=== PATIENT | male | born 1985 | race Two or more races ===

== ENCOUNTER 2017-10-16 13:13 | Inpatient (IN) | payer MEDICARE ==
[2017-10-16 15:34] VITALS: BMI 23.6
[2017-10-16] MEDS ORDERED: LOPERAMIDE HCL 2 MG CAPSULE PO PRN (17:25)
[2017-10-16] MEDS ORDERED: guaiFENesin/D-METHORPHAN HB 10 ML UNIT-DOSE CUPS PO PRN (17:25)
[2017-10-16] MEDS ORDERED: MAG HYDROX/AL HYDROX/SIMETH 30 ML UNIT-DOSE CUP PO PRN (17:25)
[2017-10-16] MEDS ORDERED: ACETAMINOPHEN 325 MG TABLET (FP) PO PRN (17:25)
[2017-10-16] MEDS ORDERED: MENTHOL/PHENOL 1 EACH UD MM PRN (17:25)
[2017-10-16] MEDS ORDERED: MAGNESIUM HYDROX 2400MG/30ML ORAL SUSPENSION 30 ML CUP PO PRN (17:25)
[2017-10-16] MEDS ORDERED: IBUPROFEN 400 MG TABLET (FP) PO PRN (17:25)
[2017-10-16] MEDS ORDERED: MAGNESIUM CITRATE 300 ML BOTTLE PO PRN (17:25)
[2017-10-16] MEDS ORDERED: P-EPHED 60MG/TRIPROLIDI 2.5MG TABLET PO PRN (17:25)
--- NOTE | 2017-10-16 17:32 | HP ---
COWS - Scale Resting Pulse: 0= [place] 80 or Below Sweatin= Chills/Flushing Restless Observation: 1= Difficult to Sit Still Pupil Size: 1= Pupils >than Normal Bone or Joint Aches: 1= Mild Discomfort Runny Nose/ Eye Tearin= Nasal Congestion GI Upset > 30mins: 2= Nausea/Diarrhea Tremor Observation: 2= Slight Tremor Visible Yawning Observation: 2= >3x During Session Anxiety or Irritability: 1=Feels Anxious/Irritable Goose Flesh Skin: 3=Piloerection COWS Score: 15 CIWA Score - CIWA Score Nausea/Vomitin Muscle Tremors: 3 Anxiety: 3 Agitation: 3 Paroxysmal Sweats: 3 Orientation: 0-Oriented Tacttile Disturbances: 0-None Auditory Disturbances: 0-None Visual Disturbances: 0-None Headache: 0-None Present CIWA-Ar Total Score: 15 Admission [facility] - HPI Chief Complaint: xanax and heroin withdrawal sx Allergies/Adverse Reactions: Allergies Allergy/AdvReac Type Severity Reaction Status Date / Time No Known Allergies Allergy Verified 10/16/17 16:50 History of Present Illness: 32 yo m with h/o opioid and xanax use diorder, smokes 1PPD fist admission for detox because of withdrawal sx when he does not use, h/o withdrawal seizure 6 months, 7 months sober through [facility], relpased last yearreports anxiety, depression and insomnai, thirsty - Ebola screening Have you been sick,other than usual withdrawal symptoms: No - Review of Systems Constitutional: Chills, Diaphoresis, Changes in sleep, Unintentional Wgt. Loss EENT: reports: Tearing, Nose Congestion Respiratory: reports: No Symptoms reported Cardiac: reports: No Symptoms Reported GI: reports: Diarrhea, Nausea, Poor Appetite, Poor Fluid Intake, Vomiting, Indigestion, Abdominal cramping : reports: No Symptoms Reported Musculoskeletal: reports: Back Pain, Joint Pain, Muscle Pain, Neck Pain Integumentary: reports: Flushing, Sweating Neuro: reports: Tremors, Weakness Endocrine: reports: Increased Thirst Hematology: reports: No Symptoms Reported Psychiatric: reports: Judgement Intact, Orientated x3, Anxious, Depressed Other Systems: Reviewed and Negative Patient History - Patient Medical History Hx Anemia: No Hx Asthma: No Hx Chronic Obstructive Pulmonary Disease (COPD): No Hx Cancer: No Hx Cardiac Disorders: No Hx Congestive Heart Failure: No Hx Hypertension: No Hx Hypercholesterolemia: No Hx Pacemaker: No HX Cerebrovascular Accident: No Hx Seizures: Yes (drug related-last episode was 6 mos. ago) Hx Dementia: No Hx Diabetes: No Hx Gastrointestinal Disorders: No Hx Genitourinary Disorders: No Hx Sexually Transmitted Disorders: No Hx Renal Disease (ESRD): No Hx Depression: Yes Hx Suicide Attempt: No Hx Schizophrenia: No - Patient Surgical History Past Surgical History: Yes Hx Neurologic Surgery: No Hx Cataract Extraction: No Hx Cardiac Surgery: No Hx Lung Surgery: No Hx Breast Surgery: No Hx Breast Biopsy: No Hx Abdominal Surgery: No Hx Appendectomy: No Hx Cholecystectomy: No Hx Genitourinary Surgery: No Hx Section: Yes (fx, nose at age 22) Hx Orthopedic Surgery: No Anesthesia Reaction: No - PPD History Previous Implant?: Yes Documented Results: Negative w/o proof Implanted On Prior [facility] Admission?: No PPD to be Administered?: Yes - Reproductive History Patient is a Female of Child Bearing Age (11 -55 yrs old): No Patient : No - Smoking Cessation Smoking history: Current every day smoker Have you smoked in the past 12 months: Yes Aproximately how many cigarettes per day: 20 Hx Chewing Tobacco Use: No Initiated information on smoking cessation: Yes 'Breaking Loose' booklet given: 10/16/17 - Substance & Tx. History Hx Alcohol Use: No Hx Substance Use: Yes Substance Use Type: Opiates, Prescribed, Tranquilizers Hx Substance Use Treatment: Yes (1st admission to [facility] in past) - Substances Abused Heroin Route: Injection Frequency: Daily Amount used: 6-10 bags Age of first use: 22 Date of Last Use: 10/15/17 Xanax Route: Oral Frequency: Daily Amount used: 4-6 mg. Age of first use: 30 Date of Last Use: 10/15/17 Family Disease History - Family Disease History Family History: Denies Admission Physical Exam BHS - Vital Signs Vital Signs: Vital Signs - 24 hr 10/16/17 15:31 Temperature 97.6 F Pulse Rate 77 Respiratory 18 Rate Blood Pressure 100/69 - Physical General Appearance: Yes: Nourished, Appropriately Dressed, Disheveled, Mild Distress, Thin, Tremorous, Irritable, Sweating, Anxious HEENTM: Yes: Within Normal Limits, EOMI, Hearing grossly Normal, Normal ENT Inspection, Normocephalic, Normal Voice, [place], Pharynx Normal Respiratory: Yes: Within Normal Limits, Chest Non-Tender, Lungs Clear, Normal Breath Sounds, No Respiratory Distress, No Accessory Muscle Use Neck: Yes: Within Normal Limits, No masses,lesions,Nodules, Supple, Trachea in good position Breast: Yes: Breast Exam Deferred Cardiology: Yes: Within Normal Limits, Regular Rhythm, Regular Rate, S1, S2 Abdominal: Yes: Normal Bowel Sounds, Non Tender, Flat, Soft Genitourinary: Yes: Within Normal Limits Back: Yes: Within Normal Limits, Normal Inspection Musculoskeletal: Yes: full range of Motion, Pelvis Stable, Back pain, Muscle Pain Extremities: Yes: Normal Capillary Refill, Normal Range of Motion, Non-Tender, Tremors Neurological: Yes: patient relations coordinator II-XII NML intact, Fully Oriented, Alert, Motor Strength 5/5, Normal Response, Depressed Affect Integumentary: Yes: Normal Color, Warm, Diaphoresis, Moist, Track Delaney (new tracks left arm only, no erythema or abscess noted.), Other (poor skin turgor) Lymphatic: Yes: Within Normal Limits - Addiitonal Findings: withdrawal sx present - Diagnostic (1) Opioid dependence with withdrawal Current Visit: Yes Status: Acute (2) Sedative, hypnotic or anxiolytic dependence with withdrawal, uncomplicated Current Visit: Yes Status: Acute (3) Nicotine dependence Current Visit: Yes Status: Acute (4) Depression Current Visit: Yes Status: Acute (5) Dehydration Current Visit: Yes Status: Acute (6) Withdrawal seizures Current Visit: Yes Status: Acute Cleared for Admission [facility] - Detox or Rehab [facility] Level of Care: Medically Managed Detox Regimen/Protocol: Methadone/Valium [facility] Breath Alcohol Content Breath Alcohol Content: 0 Urine Drug Screen - Results Drug Screen Negative: No Urine Drug Screen Results: GABRIELLE-Cocaine, OPI-Opiates, BZO-Benzodiazepines
[2017-10-16] MEDS ORDERED: diazePAM 5 MG TABLET PO ONE (18:00)
[2017-10-16] MEDS ORDERED: METHADONE HCL 10 MG TABLET (FOR DETOX USE ONLY) PO ONE ×2 (18:00→23:00)
[2017-10-16] MEDS ORDERED: METHADONE HCL 10 MG TABLET (FOR DETOX USE ONLY) ONE (20:18)
[2017-10-16] MEDS: NICOTINE 21 MG/24 HOURS TOPICAL PATCH TD SCH (20:28)
[2017-10-16] MEDS: diazePAM 5 MG TABLET PO SCH (22:24)
[2017-10-16] MEDS: THIAMINE HCL 100 MG TABLET (FP) PO SCH (22:24)
[2017-10-16] MEDS: ZOLPIDEM TARTRATE 10 MG TABLET (PARK CARE ONLY) PO PRN (22:25)
[2017-10-16 23:12] LABS: URINE APPEARANCE CLEAR; URINE BILIRUBIN NEGATIVE (NEGATIVE); URINE BLOOD NEGATIVE (NEGATIVE); URINE COLOR LT. YELLOW; URINE GLUCOSE (UA) NEGATIVE (NEGATIVE); URINE KETONE NEGATIVE (NEGATIVE); URINE LEUK ESTERASE NEGATIVE (NEGATIVE); URINE NITRITE NEGATIVE (NEGATIVE); URINE PROTEIN NEGATIVE (NEGATIVE); URINE UROBILINOGEN 0.2 mg/dL (0.2-1.0)
[2017-10-17] MEDS: diazePAM 5 MG TABLET PO PRN ×3 (00:34→15:01)
[2017-10-17] MEDS: diazePAM 5 MG TABLET PO SCH ×3 (05:28→22:08)
--- NOTE | 2017-10-17 08:52 | CONSULT ---
[facility] Psychiatric Consult - Data Date of interview: 10/17/17 Admission source: [facility] Identifying data: This is 32 years old male [facility] [id number] hospitalization history intoxicated with: Opioids, Careack, Xanax, Nicotine Substance Abuse History: - Smoking Cessation. Smoking history: Current every day smoker. Have you smoked in the past 12 months: Yes. Aproximately how many cigarettes per day: 20. Hx Chewing Tobacco Use: No. Initiated information on smoking cessation: Yes. 'Breaking Loose' booklet given: 10/16/17. - Substance & Tx. History. Hx Alcohol Use: No. Hx Substance Use: Yes. Substance Use Type : Opiates, Prescribed, Tranquilizers. Hx Substance Use Treatment: Yes (1[facility] admission [facility] in past). - Substances Abused. Heroin. Route: Injection. Frequency: Daily. Amount used: 6-10 bags. Age of first use: 22. Date of Last Use: 10/15/17. Xanax. Route: Oral. Frequency: Daily. Amount used: 4-6 mg. Age of first use: 30. Date of Last Use: 10/15/17 Medical History: Denies Psychiatric History: Gibran reports history of anxiety and depression, reports psychiatric hospitalization on 2015 at [facility] for safety. Reports anxiety and asking for medications for anxiety Physical/Sexual Abuse/Trauma History: Denies Additional Comment: Vistaril 50mg po q4 prn for anxiety Mental Status Exam - Mental Status Exam Alert and Oriented to: Person Cognitive Function: Fair Patient Appearance: Unkempt Mood: Anxious Affect: Mood Congruent Patient Behavior: Cooperative Speech Pattern: Appropriate Voice Loudness: Normal Thought Process: Goal Oriented Thought Disorder: Being Controlled Hallucinations: Denies Suicidal Ideation: Denies Homicidal Ideation: Denies Insight/Judgement: Fair Sleep: Difficulty falling asleep Appetite: Weight loss Muscle strength/Tone: Normal Gait/Station: Normal Additional Comments: Vistaril 50mg po q4 prn for anxiety Psychiatric Findings - Problem List (Falls Of Rough 1, 2,3) (1) Drug-induced mood disorder Current Visit: Yes Status: Acute (2) Nicotine dependence Current Visit: Yes Status: Acute (3) Opioid dependence with withdrawal Current Visit: Yes Status: Acute (4) Sedative, hypnotic or anxiolytic dependence with withdrawal, uncomplicated Current Visit: Yes Status: Acute - Initial Treatment Plan Initial Treatment Plan: Vistaril 50mg po q4 prn for anxiety
[2017-10-17] MEDS ORDERED: METHADONE HCL 10 MG TABLET (FOR DETOX USE ONLY) PO SCH (10:00)
[2017-10-17 10:07] LABS: MCH 31.8 pg (25.7-33.7); MCHC 33.8 g/dl (32.0-35.9); MEAN CELL VOLUME 94.1 fl (80-96); MEAN PLT VOLUME 9.6 fl (7.5-11.1); PLATELET COUNT 162 K/MM3 (134-434); RDW 14.1 % (11.9-15.9); WHITE BLOOD COUNT 4.4 K/mm3 (4.0-10.0)
--- NOTE | 2017-10-17 10:12 | PN ---
S CIWA - CIWA Score Nausea/Vomitin Muscle Tremors: 3 Anxiety: 3 Agitation: 3 Paroxysmal Sweats: 3 Orientation: 0-Oriented Tacttile Disturbances: 0-None Auditory Disturbances: 0-None Visual Disturbances: 0-None Headache: 0-None Present CIWA-Ar Total Score: 15 BHS COWS - Scale Resting Pulse: 1= [place] 81-100 Sweatin= Chills/Flushing Restless Observation: 1= Difficult to Sit Still Pupil Size: 1= Pupils >than Normal Bone or Joint Aches: 1= Mild Discomfort Runny Nose/ Eye Tearin= Nasal Congestion GI Upset > 30mins: 2= Nausea/Diarrhea Tremor Observation of Outstretched Hands: 2= Slight Tremor Visible Yawning Observation: 1= 1-2x During Session Anxiety or Irritability: 2=Irritable/Anxious Goose Flesh Skin: 3=Piloerection COWS Score: 16 S Progress Note (SOAP) Subjective: nausea, sweats, interrupted sleeep, anxeity, tremors, Objective: 10/17/17 10:11 Vital Signs - 24 hr 10/16/17 10/16/17 10/17/17 15:31 22:13 03:30 Temperature 97.6 F 98.2 F Pulse Rate 77 93 H Respiratory 18 18 18 Rate Blood Pressure 100/69 125/77 10/17/17 06:28 Temperature 97.4 F L Pulse Rate 70 Respiratory 18 Rate Blood Pressure 98/63 Laboratory Tests 10/16/17 10/17/17 21:00 07:00 WBC 4.4 RBC 4.15 Hgb 13.2 Hct 39.1 MCV 94.1 MCH 31.8 MCHC 33.8 RDW 14.1 Plt Count 162 MPV 9.6 Urine Color Lt. yellow Urine Appearance Clear Urine pH 6.0 Ur Specific [place] 1.025 Urine Protein Negative Urine Glucose (UA) Negative Urine Ketones Negative Urine Blood Negative Urine Nitrite Negative Urine Bilirubin Negative Urine Urobilinogen 0.2 labs pending Assessment: 10/17/17 10:11 withdrawwal sx - cont detox, symptomatic relief of withdrawl, neurontinordered and flexeril, fluids, encourage ambualtion
[2017-10-17] MEDS ORDERED: ONDANSETRON *ODT* 4 MG TABLET SL PRN (10:13)
[2017-10-17 10:25] LABS: ALBUMIN 3.2 g/dl (3.4-5.0); ALK PHOS 54 U/L (45-117); ANION GAP 8 (8-16); BILIRUBIN,TOTAL 0.2 mg/dL (0.2-1.0); CALCIUM 8.4 mg/dL (8.5-10.1); CO2 27 mmol/L (21-32); CREATININE 0.9 mg/dL (0.7-1.3); GLUCOSE,RANDOM 118 mg/dL (74-106); SGOT/AST 22 U/L (15-37); SGPT/ALT 21 U/L (12-78); TOT PROT 5.8 g/dl (6.4-8.2)
[2017-10-17] MEDS: PRENATAL VITAMINS W/ FOLIC ACID TABLET (FP) PO SCH (10:56)
[2017-10-17] MEDS: NICOTINE 21 MG/24 HOURS TOPICAL PATCH TD SCH (10:57)
[2017-10-17] MEDS: PANTOPRAZOLE 40 MG TABLET (FP) PO SCH (10:58)
[2017-10-17] MEDS: NAPROXEN 500 MG TABLET (FP) PO SCH ×2 (10:58→22:08)
[2017-10-17] MEDS: NICOTINE POLACRILEX 4 MG GUM BC PRN (10:59)
[2017-10-17 11:25] LABS: SICKLE CELL SCREEN NEGATIVE (NEGATIVE)
[2017-10-17 11:29] LABS: URINE LEUK ESTERASE Negative (NEGATIVE)
--- NOTE | 2017-10-17 11:41 | EKG ---
Test Reason : Blood Pressure : / mmHG Vent. Rate : 079 BPM Atrial Rate : 079 BPM P-R Int : 132 ms QRS Dur : 084 ms QT Int : 392 ms P-R-T Axes : 061 065 044 degrees QTc Int : 449 ms NORMAL SINUS RHYTHM NORMAL ECG NO PREVIOUS ECGS AVAILABLE Confirmed by DAMON MUNSON MD ([id number]) on 10/17/2017 11:41:06 AM Referred By: Confirmed By:DAMON MUNSON MD
[2017-10-17 11:45] LABS: HIV 1 & 2 AB NEGATIVE; HIV 1 AGp24 NEGATIVE
[2017-10-17] MEDS: hydrOXYzine PAMOATE 50 MG CAPSULE (FP) PO PRN (12:29)
[2017-10-17] MEDS: CYCLOBENZAPRINE HCL 10 MG TABLET (FP) PO SCH ×2 (15:00→22:09)
[2017-10-17] MEDS: GABAPENTIN 100 MG CAPSULE (FP) PO SCH ×2 (15:00→22:09)
[2017-10-17] MEDS: THIAMINE HCL 100 MG TABLET (FP) PO SCH (22:08)
[2017-10-17] MEDS: ZOLPIDEM TARTRATE 10 MG TABLET (PARK CARE ONLY) PO PRN (22:16)
[2017-10-18] MEDS: GABAPENTIN 100 MG CAPSULE (FP) PO SCH ×3 (07:32→22:42)
[2017-10-18] MEDS: CYCLOBENZAPRINE HCL 10 MG TABLET (FP) PO SCH ×3 (07:32→22:42)
[2017-10-18] MEDS: METHADONE HCL 5 MG TABLET (FOR DETOX USE ONLY) PO SCH (10:47)
[2017-10-18] MEDS: NICOTINE 21 MG/24 HOURS TOPICAL PATCH TD SCH (10:48)
[2017-10-18] MEDS: PANTOPRAZOLE 40 MG TABLET (FP) PO SCH (10:48)
[2017-10-18] MEDS: NICOTINE POLACRILEX 4 MG GUM BC PRN (10:48)
[2017-10-18] MEDS: NAPROXEN 500 MG TABLET (FP) PO SCH ×2 (10:48→22:41)
[2017-10-18] MEDS: PRENATAL VITAMINS W/ FOLIC ACID TABLET (FP) PO SCH (10:48)
[2017-10-18] MEDS: diazePAM 5 MG TABLET PO SCH ×2 (10:48→22:41)
--- NOTE | 2017-10-18 11:37 | PN ---
S CIWA - CIWA Score Nausea/Vomitin Muscle Tremors: 3 Anxiety: 3 Agitation: 3 Paroxysmal Sweats: 2 Orientation: 0-Oriented Tacttile Disturbances: 1-Very Mild Itch/Numbness Auditory Disturbances: 1-Very Mild Visual Disturbances: 0-None Headache: 2-Mild CIWA-Ar Total Score: 18 BHS COWS - Scale Resting Pulse: 0= [place] 80 or Below Sweatin= Chills/Flushing Restless Observation: 3= Extraneous Movement Pupil Size: 1= Pupils >than Normal Bone or Joint Aches: 2= Severe Diffuse Aches Runny Nose/ Eye Tearin= Runny Nose/Eyes GI Upset > 30mins: 2= Nausea/Diarrhea Tremor Observation of Outstretched Hands: 2= Slight Tremor Visible Yawning Observation: 1= 1-2x During Session Anxiety or Irritability: 2=Irritable/Anxious Goose Flesh Skin: 0=Smooth Skin COWS Score: 16 S Progress Note (SOAP) Subjective: alert,irritable,anxious,interrupted sleep,pain in the body and back,tremor Objective: 10/18/17 11:35 Vital Signs Temperature 96.4 F L 10/18/17 11:17 Pulse Rate 57 L 10/18/17 11:17 Respiratory Rate 18 10/18/17 11:17 Blood Pressure 118/78 10/18/17 11:17 O2 Sat by Pulse Oximetry (%) 10/18/17 11:36 Laboratory Last Values WBC 4.4 K/mm3 (4.0-10.0) 10/17/17 07:00 RBC 4.15 M/mm3 (4.00-5.60) 10/17/17 07:00 Hgb 13.2 GM/dL (11.7-16.9) 10/17/17 07:00 Hct 39.1 % (35.4-49) 10/17/17 07:00 MCV 94.1 fl (80-96) 10/17/17 07:00 MCH 31.8 pg (25.7-33.7) 10/17/17 07:00 MCHC 33.8 g/dl (32.0-35.9) 10/17/17 07:00 RDW 14.1 % (11.9-15.9) 10/17/17 07:00 Plt Count 162 K/MM3 (134-434) 10/17/17 07:00 MPV 9.6 fl (7.5-11.1) 10/17/17 07:00 Sickle Cell Screen Negative (NEGATIVE) 10/17/17 07:00 Sodium 145 mmol/L (136-145) 10/17/17 07:00 Potassium 4.0 mmol/L (3.5-5.1) 10/17/17 07:00 Chloride 110 mmol/L (98-107) H 10/17/17 07:00 Carbon Dioxide 27 mmol/L (21-32) 10/17/17 07:00 Anion Gap 8 (8-16) 10/17/17 07:00 BUN 16 mg/dL (7-18) 10/17/17 07:00 Creatinine 0.9 mg/dL (0.7-1.3) 10/17/17 07:00 Creat Clearance w eGFR > 60 (>60) 10/17/17 07:00 Random Glucose 118 mg/dL (74-106) H 10/17/17 07:00 Calcium 8.4 mg/dL (8.5-10.1) L 10/17/17 07:00 Total Bilirubin 0.2 mg/dL (0.2-1.0) 10/17/17 07:00 AST 22 U/L (15-37) 10/17/17 07:00 ALT 21 U/L (12-78) 10/17/17 07:00 Alkaline Phosphatase 54 U/L (45-117) 10/17/17 07:00 Total Protein 5.8 g/dl (6.4-8.2) L 10/17/17 07:00 Albumin 3.2 g/dl (3.4-5.0) L 10/17/17 07:00 Urine Color Lt. yellow 10/16/17 21:00 Urine Appearance Clear 10/16/17 21:00 Urine pH 6.0 (5.0-8.0) 10/16/17 21:00 Ur Specific [place] 1.025 (1.001-1.035) 10/16/17 21:00 Urine Protein Negative (NEGATIVE) 10/16/17 21:00 Urine Glucose (UA) Negative (NEGATIVE) 10/16/17 21:00 Urine Ketones Negative (NEGATIVE) 10/16/17 21:00 Urine Blood Negative (NEGATIVE) 10/16/17 21:00 Urine Nitrite Negative (NEGATIVE) 10/16/17 21:00 Urine Bilirubin Negative (NEGATIVE) 10/16/17 21:00 Urine Urobilinogen 0.2 mg/dL (0.2-1.0) 10/16/17 21:00 Ur Leukocyte Esterase Negative (NEGATIVE) 10/16/17 21:00 RPR Titer Nonreactive (NONREACTIVE) 10/17/17 07:00 Hepatitis C Antibody <0.1 s/co ratio (0.0-0.9) 10/16/17 07:00 HIV 1&2 Antibody Screen Negative 10/17/17 07:00 HIV P24 Antigen Negative 10/17/17 07:00 Assessment: 10/18/17 11:36 withdrawal symptom Plan: continue detox,bgm daily initial glucose is 118
[2017-10-18] MEDS: diazePAM 5 MG TABLET PO PRN ×2 (13:45→17:51)
[2017-10-18] MEDS: THIAMINE HCL 100 MG TABLET (FP) PO SCH (22:42)
[2017-10-18] MEDS: ZOLPIDEM TARTRATE 10 MG TABLET (PARK CARE ONLY) PO PRN (22:42)
[2017-10-19] MEDS: GABAPENTIN 100 MG CAPSULE (FP) PO SCH ×3 (05:55→22:31)
[2017-10-19] MEDS: CYCLOBENZAPRINE HCL 10 MG TABLET (FP) PO SCH ×3 (05:55→22:31)
[2017-10-19] MEDS: diazePAM 5 MG TABLET PO PRN ×3 (05:56→17:20)
[2017-10-19] MEDS: diazePAM 5 MG TABLET PO SCH ×2 (11:04→22:32)
[2017-10-19] MEDS: NAPROXEN 500 MG TABLET (FP) PO SCH ×2 (11:05→22:31)
[2017-10-19] MEDS: PRENATAL VITAMINS W/ FOLIC ACID TABLET (FP) PO SCH (11:05)
[2017-10-19] MEDS: PANTOPRAZOLE 40 MG TABLET (FP) PO SCH (11:05)
[2017-10-19] MEDS: METHADONE HCL 5 MG TABLET (FOR DETOX USE ONLY) PO SCH (11:05)
[2017-10-19] MEDS: NICOTINE 21 MG/24 HOURS TOPICAL PATCH TD SCH (11:08)
--- NOTE | 2017-10-19 12:40 | PN ---
BHS Progress Note (SOAP) Subjective: alert,irritable,anxious,interrupted sleep,pain in the body and back Objective: 10/19/17 12:38 Vital Signs Temperature 96.6 F L 10/19/17 10:00 Pulse Rate 62 10/19/17 10:00 Respiratory Rate 20 10/19/17 10:00 Blood Pressure 126/69 10/19/17 10:00 O2 Sat by Pulse Oximetry (%) 10/19/17 12:39 Laboratory Results - last 24 hr 10/19/17 06:15 POC Glucometer 104 Assessment: 10/19/17 12:38 withdrawal symptom Plan: continue detox,
[2017-10-19] MEDS: hydrOXYzine PAMOATE 50 MG CAPSULE (FP) PO PRN (17:20)
[2017-10-19] MEDS: THIAMINE HCL 100 MG TABLET (FP) PO SCH (22:31)
[2017-10-20] MEDS: hydrOXYzine PAMOATE 50 MG CAPSULE (FP) PO PRN ×2 (01:37→22:47)
[2017-10-20] MEDS: GABAPENTIN 100 MG CAPSULE (FP) PO SCH ×3 (05:31→22:44)
[2017-10-20] MEDS: CYCLOBENZAPRINE HCL 10 MG TABLET (FP) PO SCH ×3 (05:31→22:44)
[2017-10-20] MEDS ORDERED: METHADONE HCL 10 MG TABLET (FOR DETOX USE ONLY) PO SCH (10:00)
[2017-10-20] MEDS ORDERED: diazePAM 5 MG TABLET PO SCH (10:00)
[2017-10-20] MEDS: PANTOPRAZOLE 40 MG TABLET (FP) PO SCH (10:37)
[2017-10-20] MEDS: PRENATAL VITAMINS W/ FOLIC ACID TABLET (FP) PO SCH (10:37)
[2017-10-20] MEDS: NAPROXEN 500 MG TABLET (FP) PO SCH ×2 (10:37→22:44)
[2017-10-20] MEDS: NICOTINE 21 MG/24 HOURS TOPICAL PATCH TD SCH (10:37)
[2017-10-20] MEDS: NICOTINE POLACRILEX 4 MG GUM BC PRN (10:38)
--- NOTE | 2017-10-20 12:05 | PN ---
BHS Progress Note (SOAP) Subjective: feeling better less sweating able to sleep throughout the night Objective: 10/20/17 12:04 Vital Signs Temperature 96.4 F L 10/20/17 10:00 Pulse Rate 53 L 10/20/17 10:00 Respiratory Rate 18 10/20/17 10:00 Blood Pressure 125/75 10/20/17 10:00 O2 Sat by Pulse Oximetry (%) Laboratory Last Values WBC 4.4 K/mm3 (4.0-10.0) 10/17/17 07:00 RBC 4.15 M/mm3 (4.00-5.60) 10/17/17 07:00 Hgb 13.2 GM/dL (11.7-16.9) 10/17/17 07:00 Hct 39.1 % (35.4-49) 10/17/17 07:00 MCV 94.1 fl (80-96) 10/17/17 07:00 MCH 31.8 pg (25.7-33.7) 10/17/17 07:00 MCHC 33.8 g/dl (32.0-35.9) 10/17/17 07:00 RDW 14.1 % (11.9-15.9) 10/17/17 07:00 Plt Count 162 K/MM3 (134-434) 10/17/17 07:00 MPV 9.6 fl (7.5-11.1) 10/17/17 07:00 Sickle Cell Screen Negative (NEGATIVE) 10/17/17 07:00 Sodium 145 mmol/L (136-145) 10/17/17 07:00 Potassium 4.0 mmol/L (3.5-5.1) 10/17/17 07:00 Chloride 110 mmol/L (98-107) H 10/17/17 07:00 Carbon Dioxide 27 mmol/L (21-32) 10/17/17 07:00 Anion Gap 8 (8-16) 10/17/17 07:00 BUN 16 mg/dL (7-18) 10/17/17 07:00 Creatinine 0.9 mg/dL (0.7-1.3) 10/17/17 07:00 Creat Clearance w eGFR > 60 (>60) 10/17/17 07:00 POC Glucometer 93 UNITS (80-120) 10/20/17 05:33 Random Glucose 118 mg/dL (74-106) H 10/17/17 07:00 Calcium 8.4 mg/dL (8.5-10.1) L 10/17/17 07:00 Total Bilirubin 0.2 mg/dL (0.2-1.0) 10/17/17 07:00 AST 22 U/L (15-37) 10/17/17 07:00 ALT 21 U/L (12-78) 10/17/17 07:00 Alkaline Phosphatase 54 U/L (45-117) 10/17/17 07:00 Total Protein 5.8 g/dl (6.4-8.2) L 10/17/17 07:00 Albumin 3.2 g/dl (3.4-5.0) L 10/17/17 07:00 Urine Color Lt. yellow 10/16/17 21:00 Urine Appearance Clear 10/16/17 21:00 Urine pH 6.0 (5.0-8.0) 10/16/17 21:00 Ur Specific [place] 1.025 (1.001-1.035) 10/16/17 21:00 Urine Protein Negative (NEGATIVE) 10/16/17 21:00 Urine Glucose (UA) Negative (NEGATIVE) 10/16/17 21:00 Urine Ketones Negative (NEGATIVE) 10/16/17 21:00 Urine Blood Negative (NEGATIVE) 10/16/17 21:00 Urine Nitrite Negative (NEGATIVE) 10/16/17 21:00 Urine Bilirubin Negative (NEGATIVE) 10/16/17 21:00 Urine Urobilinogen 0.2 mg/dL (0.2-1.0) 10/16/17 21:00 Ur Leukocyte Esterase Negative (NEGATIVE) 10/16/17 21:00 RPR Titer Nonreactive (NONREACTIVE) 10/17/17 07:00 Hepatitis C Antibody <0.1 s/co ratio (0.0-0.9) 10/16/17 07:00 HIV 1&2 Antibody Screen Negative 10/17/17 07:00 HIV P24 Antigen Negative 10/17/17 07:00 lab noted Assessment: 10/20/17 12:04 mild withdrawal sx Plan: observation with detox regimen
[2017-10-20] MEDS: THIAMINE HCL 100 MG TABLET (FP) PO SCH (22:45)
[2017-10-21] MEDS: GABAPENTIN 100 MG CAPSULE (FP) PO SCH (05:53)
[2017-10-21] MEDS: CYCLOBENZAPRINE HCL 10 MG TABLET (FP) PO SCH (05:53)
[2017-10-21] MEDS ORDERED: METHADONE HCL 5 MG TABLET (FOR DETOX USE ONLY) PO SCH (06:00)
[2017-10-21 06:27] VITALS: BP 104/65; PULSE 61; TEMP 97.2
--- NOTE | 2017-10-21 08:35 | DS ---
[facility] Detox Discharge Summary Admission Date: 10/16/17 Discharge Date: 10/21/17 - History Present History: Opioid Dependence, Sedative Dependence - Physical Exam Results Vital Signs: Vital Signs Temperature 97.2 F L 10/21/17 06:26 Pulse Rate 61 10/21/17 06:26 Respiratory Rate 18 10/21/17 06:26 Blood Pressure 104/65 10/21/17 06:26 O2 Sat by Pulse Oximetry (%) - Treatment Hospital Course: Detox Protocol Followed, Detoxed Safely, Responded well, Discharged Condition Good, Rehab Referral Accepted - Medication Discharge Medications: Ambulatory Orders NK [No Known Home Medication] 10/16/17 - Diagnosis (1) Dehydration Current Visit: Yes Status: Acute (2) Depression Current Visit: Yes Status: Acute (3) Drug-induced mood disorder Current Visit: Yes Status: Acute (4) Nicotine dependence Current Visit: Yes Status: Chronic Qualifiers: Nicotine product type: cigarettes Substance use status: uncomplicated Qualified Code(s): F17.210 - Nicotine dependence, cigarettes, uncomplicated (5) Opioid dependence with withdrawal Current Visit: Yes Status: Acute (6) Sedative, hypnotic or anxiolytic dependence with withdrawal, uncomplicated Current Visit: Yes Status: Chronic (7) Withdrawal seizures Current Visit: Yes Status: Acute - AMA Did Patient Leave Against Medical Advice: No
[2017-10-21] MEDS: PANTOPRAZOLE 40 MG TABLET (FP) PO SCH (10:28)
[2017-10-21] MEDS: PRENATAL VITAMINS W/ FOLIC ACID TABLET (FP) PO SCH (10:28)
[2017-10-21] MEDS: NAPROXEN 500 MG TABLET (FP) PO SCH (10:28)
[2017-10-21] MEDS: NICOTINE 21 MG/24 HOURS TOPICAL PATCH TD SCH (10:28)
== END 2017-10-21 09:12 | disposition home or self-care (01) | DRG 773 ==
LOC: YASAS 13:13 → Y6N 17:22
PROVIDERS: ADMIT Internal Medicine; ATTEND Internal Medicine
PROC: HZ2ZZZZ Detoxification Services for Substance Abuse Treatment (ICD-10-PCS; principal; 2017-10-16)
DX: F11.23 Opioid dependence with withdrawal (principal); F13.230 Sedative, hypnotic or anxiolytic dependence with withdrawal, uncomplicated; F17.210 Nicotine dependence, cigarettes, uncomplicated; F19.24 Other psychoactive substance dependence with psychoactive substance-induced mood disorder; F32.9 Major depressive disorder, single episode, unspecified; F19.239 Other psychoactive substance dependence with withdrawal, unspecified; G40.509 Epileptic seizures related to external causes, not intractable, without status epilepticus; E86.0 Dehydration
CPT/HCPCS: 36415; 80053; 81003; 85027; 85660; 86593; 86803; 87389; 93005; 93010

== ENCOUNTER 2021-09-29 15:51 | Inpatient (IN) | payer OTHER ==
[2021-09-29 18:21] VITALS: BMI 25.7
[2021-09-29] MEDS ORDERED: MAGNESIUM CITRATE 300 ML BOTTLE PO PRN (18:41)
[2021-09-29] MEDS ORDERED: cloNIDine HCL 0.1 MG TABLET PO PRN (18:41)
[2021-09-29] MEDS ORDERED: NALOXONE HCL 0.4 MG/ML VIAL IM PRN (18:41)
[2021-09-29] MEDS ORDERED: IBUPROFEN 400 MG TABLET (FP) PO PRN (18:41)
[2021-09-29] MEDS ORDERED: P-EPHED 60MG/TRIPROLIDI 2.5MG TABLET PO PRN (18:41)
[2021-09-29] MEDS ORDERED: BISMUTH SUBSALICYLATE 524 MG/30 ML PO PRN (18:41)
[2021-09-29] MEDS ORDERED: ACETAMINOPHEN 325 MG TABLET (FP) PO PRN ×2 (18:41)
[2021-09-29] MEDS ORDERED: MENTHOL/PHENOL 1 EACH UD MM PRN (18:41)
[2021-09-29] MEDS ORDERED: NALOXONE (NARCAN) HCL 4 MG/0.1 ML SPRAY NS PRN (18:41)
[2021-09-29] MEDS ORDERED: MAG HYDROX/AL HYDROX/SIMETH 30 ML UNIT-DOSE CUP PO PRN (18:41)
[2021-09-29] MEDS ORDERED: guaiFENesin 200 MG/10 ML 10 ML UNIT-DOSE CUPS PO PRN (18:41)
[2021-09-29] MEDS ORDERED: DICYCLOMINE HCL 10 MG CAPSULE PO PRN (18:41)
[2021-09-29] MEDS ORDERED: MAGNESIUM HYDROX 2400MG/30ML ORAL SUSPENSION 30 ML CUP PO PRN (18:41)
[2021-09-29] MEDS ORDERED: methaDONE HCL 10 MG TABLET (FOR DETOX USE ONLY) PO ONE ×2 (18:41→23:00)
[2021-09-29] MEDS: THIAMINE HCL 100 MG TABLET (FP) PO SCH (23:02)
[2021-09-29] MEDS: MELATONIN 5 MG TABLETS PO SCH (23:02)
[2021-09-29] MEDS: METHOCARBAMOL 500 MG TABLET PO PRN (23:06)
[2021-09-30] MEDS: NICOTINE 10 MG CARTRIDGE (INHALER) IH PRN ×6 (00:06→22:45)
[2021-09-30] MEDS ORDERED: MASKS NR ONE (06:00)
[2021-09-30] MEDS ORDERED: methaDONE HCL 10 MG TABLET (FOR DETOX USE ONLY) ONE (08:59)
[2021-09-30] MEDS: METHOCARBAMOL 500 MG TABLET PO PRN ×2 (10:00→22:46)
[2021-09-30] MEDS: NICOTINE 21 MG/24 HOURS TOPICAL PATCH TD SCH (10:00)
[2021-09-30] MEDS: diazePAM 5 MG TABLET PO PRN ×4 (10:00→22:46)
[2021-09-30] MEDS: PRENATAL VITAMINS W/ FOLIC ACID TABLET (FP) PO SCH (10:00)
[2021-09-30 12:24] LABS: HEMATOCRIT 41.6 % (35.4-49); HEMOGLOBIN 14.2 GM/dL (11.7-16.9); MCH 31.6 pg (25.7-33.7); MCHC 34.1 g/dl (32.0-35.9); MEAN CELL VOLUME 92.5 fl (80-96); MEAN PLT VOLUME 9.5 fl (7.5-11.1); PLATELET COUNT 229 10^3/uL (134-434); RDW 14.1 % (11.9-15.9); WHITE BLOOD COUNT 4.6 K/mm3 (4.0-10.0)
[2021-09-30 12:39] LABS: CALCIUM 8.9 mg/dL (8.5-10.1)
[2021-09-30 12:40] LABS: BLOOD UREA NITROGEN 13.4 mg/dL (7-18)
[2021-09-30 12:41] LABS: ALBUMIN 3.3 g/dl (3.4-5.0)
[2021-09-30 12:43] LABS: CREATININE 0.7 mg/dL (0.55-1.3)
[2021-09-30 12:44] LABS: TOT PROT 6.3 g/dl (6.4-8.2)
[2021-09-30 12:45] LABS: BILIRUBIN,TOTAL 0.2 mg/dL (0.2-1)
[2021-09-30] MEDS: THIAMINE HCL 100 MG TABLET (FP) PO SCH (22:43)
[2021-09-30] MEDS: MELATONIN 5 MG TABLETS PO SCH (22:44)
[2021-10-01] MEDS: NICOTINE 10 MG CARTRIDGE (INHALER) IH PRN ×5 (05:16→22:22)
[2021-10-01] MEDS: diazePAM 5 MG TABLET PO PRN ×5 (05:17→22:23)
[2021-10-01] MEDS: METHOCARBAMOL 500 MG TABLET PO PRN ×3 (05:18→22:22)
[2021-10-01] MEDS ORDERED: methaDONE HCL 10 MG TABLET (FOR DETOX USE ONLY) PO ONE (10:00)
[2021-10-01] MEDS: PRENATAL VITAMINS W/ FOLIC ACID TABLET (FP) PO SCH (10:36)
[2021-10-01] MEDS: NICOTINE 21 MG/24 HOURS TOPICAL PATCH TD SCH (10:38)
[2021-10-01] MEDS: MELATONIN 5 MG TABLETS PO SCH (22:22)
[2021-10-01] MEDS: THIAMINE HCL 100 MG TABLET (FP) PO SCH (22:22)
[2021-10-02] MEDS: diazePAM 5 MG TABLET PO PRN ×4 (02:25→15:04)
[2021-10-02] MEDS: NICOTINE 10 MG CARTRIDGE (INHALER) IH PRN ×6 (02:26→23:04)
[2021-10-02] MEDS ORDERED: methaDONE HCL 10 MG TABLET (FOR DETOX USE ONLY) ONE (10:15)
[2021-10-02] MEDS: NICOTINE 21 MG/24 HOURS TOPICAL PATCH TD SCH (11:35)
[2021-10-02] MEDS: PRENATAL VITAMINS W/ FOLIC ACID TABLET (FP) PO SCH (11:35)
[2021-10-02] MEDS: METHOCARBAMOL 500 MG TABLET PO PRN ×2 (15:04→22:22)
[2021-10-02] MEDS ORDERED: diazePAM 5 MG TABLET PO ONE (22:00)
[2021-10-02] MEDS: THIAMINE HCL 100 MG TABLET (FP) PO SCH (23:04)
[2021-10-02] MEDS: MELATONIN 5 MG TABLETS PO SCH (23:04)
[2021-10-03] MEDS: NICOTINE 10 MG CARTRIDGE (INHALER) IH PRN ×2 (03:40→09:47)
[2021-10-03 08:51] VITALS: TEMP 97.1
[2021-10-03] MEDS: NICOTINE 21 MG/24 HOURS TOPICAL PATCH TD SCH (09:44)
[2021-10-03] MEDS: PRENATAL VITAMINS W/ FOLIC ACID TABLET (FP) PO SCH (09:44)
[2021-10-03] MEDS: METHOCARBAMOL 500 MG TABLET PO PRN (09:44)
[2021-10-03] MEDS ORDERED: methaDONE HCL 10 MG TABLET (FOR DETOX USE ONLY) PO ONE (10:00)
[2021-10-03 12:58] VITALS: BP 139/74; PULSE 105
== END 2021-10-03 12:29 | disposition home or self-care (01) | DRG 773 ==
LOC: YASAS 15:51 → Y3N 22:07
PROVIDERS: ADMIT Allergy & Immunology; ATTEND Allergy & Immunology
PROC: HZ2ZZZZ Detoxification Services for Substance Abuse Treatment (ICD-10-PCS; principal; 2021-09-29)
DX: F11.23 Opioid dependence with withdrawal (principal); F14.20 Cocaine dependence, uncomplicated; F13.10 Sedative, hypnotic or anxiolytic abuse, uncomplicated; F17.210 Nicotine dependence, cigarettes, uncomplicated; F19.24 Other psychoactive substance dependence with psychoactive substance-induced mood disorder; E86.0 Dehydration; L90.5 Scar conditions and fibrosis of skin; Z86.69 Personal history of other diseases of the nervous system and sense organs; Z56.0 Unemployment, unspecified
CPT/HCPCS: 36415; 80053; 85027; 86780; 93005; 93010; C9803; U0003; U0005